=== PATIENT | female | born 1975 | race Two or more races ===

== ENCOUNTER 2020-04-27 22:58 | Emergency (ER) | payer BC ==
[~2020-04-27] VITALS: Ht 160 cm; Wt 79.8 kg
== END 2020-04-28 01:18 | disposition home or self-care (01) ==
LOC: ER 22:58
DX: R03.0 Elevated blood-pressure reading, without diagnosis of hypertension (principal); R06.02 Shortness of breath

== ENCOUNTER 2023-07-04 12:13 | Outpatient (CLI) | payer OTHER | END 2023-07-04 12:23 | disposition home or self-care (01) | LOC: SONOGRAMA 12:13 | PROVIDERS: ATTEND Obstetrics & Gynecology | DX: R10.2 Pelvic and perineal pain (principal); N95.0 Postmenopausal bleeding ==

== ENCOUNTER 2025-02-21 09:13 | Outpatient (CLI) | payer OTHER | END 2025-02-21 09:21 | disposition home or self-care (01) | LOC: SONOGRAMA 09:13 | PROVIDERS: ATTEND Family Medicine | DX: G56.02 Carpal tunnel syndrome, left upper limb (principal); G56.01 Carpal tunnel syndrome, right upper limb; R74.01 Elevation of levels of liver transaminase levels ==